=== PATIENT | female | born 1970 | race Caucasian/White ===

== ENCOUNTER 2016-05-19 20:04 | Emergency (ER) | payer BC ==
[2016-05-19] MEDS: 0.9 % SODIUM CHLORIDE 1,000 ML BAG IV ONE (20:28)
[2016-05-19] MEDS: ONDANSETRON HCL IV 4 MG/2 ML VIAL IVP ONE (20:28)
[2016-05-19] MEDS: HYOSCYAMINE SULFATE ODT 0.125 MG TAB.SUBL SL ONE (20:38)
--- NOTE | 2016-05-19 20:38 | Emergency Department Record ---
History of Present Illness - General Chief Complaint: Abdominal Pain Stated Complaint: STOMACH CRAMPY,SPASMS Time Seen by Provider: 05/19/16 20:32 Source: Patient Mode of Arrival: Ambulatory Limitations: No limitations - History of Present Illness Initial Comments: 46 yo female presents to ED with a CC of diffuse abdominal cramping, bloating, nausea, and vomiting symptoms that began earlier this afternoon. Patient denies fevers, chills, or recent ill contacts, but reports that her symptoms feel "like a stomach flu". Patient denies health problems at her baseline, reports x 2 previously. Patient denies change in stools. MD Complaint: Abdominal pain Onset/Timin -: Hour(s) Location: Diffuse Radiation: None Migration to: No migration Severity: Severe Quality: Cramping Consistency: Constant, Intermittent Improves With: Nothing Worsens With: Nothing Context: Other Associated Symptoms: Nausea - Related Data LMP (females 10-50): other Patient : No Previous Rx's Medication Instructions Recorded Hyoscyamine Sulfate [Levsin Odt] 0.25 mg PO Q8H PRN #15 tab.subl 05/19/16 Ondansetron [Zofran Odt] 4 mg PO Q4H PRN #15 tab.rapdis 05/19/16 Allergies Allergy/AdvReac Type Severity Reaction Status Date / Time No Known Drug Allergies Allergy Verified 05/19/16 20:15 Travel Screening - Travel/Exposure Within Last 30 Days Have you traveled within the last 30 days?: No - Travel/Exposure Within Last Year Have you traveled outside the [place] in the last year?: No - Additonal Travel Details Have you been exposed to anyone with a communicable illness?: No - Travel Symptoms Symptom Screening: None Review of Systems Constitutional: Denies: Chills, Fever, Malaise, Night sweats Eyes: Denies: Eye discharge, Eye pain ENT: Denies: Congestion, Ear pain, Epistaxis Respiratory: Denies: Cough, Dyspnea Cardiovascular: Denies: Chest pain, Dyspnea on exertion, Palpitations Endocrine: Denies: Fatigue, Heat or cold intolerance Gastrointestinal: Reports: Abdominal pain, Nausea, Vomiting. Denies: Constipation Genitourinary: Denies: Dysuria, Frequency, Hematuria, Incontinence Musculoskeletal: Denies: Arthralgia, Back pain, Gout, Joint swelling Skin: Denies: Bruising, Change in color Neurological: Denies: Abnormal gait, Confusion, Headache, Seizure Psychiatric: Denies: Anxiety Hematological/Lymphatic: Denies: Anemia, Blood Clots Past Medical History - SOCIAL HISTORY Smoking Status: Never smoker Alcohol Use: None Drug Use: None - RESPIRATORY Hx Respiratory Disorders: No - CARDIOVASCULAR Hx Cardio Disorders: No - NEURO Hx Neuro Disorders: No - GI Hx GI Disorders: No - Hx Genitourinary Disorders: No - ENDOCRINE Hx Endocrine Disorders: No - MUSCULOSKELETAL Hx Musculoskeletal Disorders: No - PSYCH Hx Psych Problems: No - HEMATOLOGY/ONCOLOGY Hx Hematology/Oncology Disorders: No Family Medical History Any Significant Family History?: No Physical Exam - General General Appearance: Alert, Oriented x3, Cooperative, Moderate distress Limitations: No limitations - Head Head exam: Atraumatic, Normocephalic, Normal inspection Head exam detail: negative: Abrasion, Contusion, Sanabria's sign, General tenderness, Hematoma, Laceration - Eye Eye exam: Normal appearance. negative: Conjunctival injection, Periorbital swelling, Periorbital tenderness, Scleral icterus - ENT Ear exam: negative: Auricular hematoma, Auricular trauma Nasal Exam: negative: Active bleeding, Discharge, Dried blood, Foreign body Mouth exam: negative: Drooling, Laceration, Muffled voice, Tongue elevation - Neck Neck exam: Normal inspection. negative: Meningismus, Tenderness - Respiratory Respiratory exam: Normal lung sounds bilaterally. negative: Respiratory distress, Rhonchi, Stridor, Wheezes - Cardiovascular Cardiovascular Exam: Normal rhythm, Normal heart sounds, Tachycardia - GI/Abdominal GI/Abdominal exam: Soft, Tenderness (mild, diffuse tenderness on examination). negative: Pulsatile mass, Rebound, Rigid - Rectal Rectal exam: Deferred - exam: Deferred - Extremities Extremities exam: Normal inspection. negative: Calf tenderness, Pedal edema, Tenderness - Back Back exam: Reports: Normal inspection. Denies: CVA tenderness (R), CVA tenderness (L), Paraspinal tenderness, Rash noted - Neurological Neurological exam: Alert, Normal gait, Oriented X3 - Psychiatric Psychiatric exam: Normal affect, Normal mood - Skin Skin exam: Normal color. negative: Abrasion Type of lesion: negative: abrasion Course Vital Signs 05/19/16 20:10 Temperature 100.0 F H Pulse Rate 115 H Respiratory 20 Rate Blood Pressure 101/70 Pulse Ox 96 - Reevaluation(s) Reevaluation #1: 05/19/16 21:16 Labs reviewed, WBC 11.9, 84% Neutrophils. CO2 18, AG 16. Labs are otherwise grossly unremarkable for an acute process. Reevaluation #2: 05/19/16 21:38 CT Abdomen and Pelvis: No acute process, (2) hypodense lesions liver (largest 13 mm), mass-like densities to the uterus c/w fibroids. recommend MRUI for further evaluation of liver lesions, US for evaluation of fibroids. Reevaluation #3: 05/19/16 22:28 Patient reassessed, reports that her symptoms are greatly improved. Pulse down to 102. Patient was updated on all results, and appears stable for discharge at this time. Patient and her were counseled regarding MRI as an outpatient to further characterize liver lesions. Patient also reports that she is s/p ablation for her fibroids. Medical Decision Making - Lab Data Result diagrams: 05/19/16 20:20 05/19/16 20:20 Disposition Disposition: Discharge Clinical Impression: Abdominal cramping Disposition: Home, Self-Care Condition: (2) Stable Instructions: Abdominal Pain (ED) Additional Instructions: Return to ED if your symptoms worsen or if you have any concerns. Levsin and Zofran as directed. Follow-up with your family doctor in 1-3 days as directed. Follow-up with your family doctor for outpatient MRI of the abdomen to further evaluate liver lesions (2) and uterine mass (likely fibroids). Prescriptions: Hyoscyamine Sulfate [Levsin Odt] 0.25 mg PO Q8H PRN #15 tab.subl PRN Reason: Abdominal Pain Ondansetron [Zofran Odt] 4 mg PO Q4H PRN #15 tab.rapdis PRN Reason: Nausea/Vomiting Forms: Patient Portal Access Time of Disposition: 22:34
[2016-05-19 20:44] LABS: BASO % 0.1 % (0-6); EOS % 0.2 % (0-6); HEMATOCRIT 42.1 % (35.0-47.0); HEMOGLOBIN 14.3 gm/dl (11.6-16.0); LYMPH % 7.6 % (16-45); MEAN CELL VOLUME 85.4 fl (81-97); MEAN PLATELET VOLUME 11.4 fl (7.4-10.4); PLATELET COUNT 325 K/uL (130-400); RED BLOOD COUNT 4.93 M/uL (3.80-5.40); WHITE BLOOD COUNT W/O DIFF 11.9 K/uL (4.2-12.2)
[2016-05-19 20:55] LABS: ALB/GLOB RATIO 1.5 (1.1-1.8); ALBUMIN 4.5 gm/dL (3.5-5.0); ALKALINE PHOSPHATASE 63 U/L (38-126); ALT/SGPT 25 U/L (9-52); ANION GAP 16.7 (7-16); AST/SGOT 22 U/L (14-36); BLOOD UREA NITROGEN 11 mg/dL (7-17); CARBON DIOXIDE 18.3 mmol/L (22-30); CREATININE 0.6 mg/dL (0.52-1.04); EST GLOMERULAR FILTRATION RATE > 60 ml/min; GLUCOSE,RANDOM 106 mg/dL (70-110); LIPASE 60 U/L (23-300); TOTAL PROTEIN 7.6 gm/dL (6.3-8.2)
[2016-05-19 21:57] LABS: URINE APPEARANCE CLEAR; URINE BILIRUBIN NEGATIVE (NEGATIVE); URINE BLOOD NEGATIVE (NEGATIVE); URINE COLOR YELLOW; URINE GLUCOSE (UA) NEGATIVE (NEGATIVE); URINE KETONE 40 mg/dL (NEGATIVE); URINE LEUKOCYTE ESTERASE NEGATIVE (NEGATIVE); URINE NITRITE NEGATIVE (NEGATIVE); URINE PROTEIN NEGATIVE (NEGATIVE); URINE UROBILINOGEN 0.2 E.U./dL (0.20 - 1.00)
[2016-05-19 21:59] LABS: HCG,QUALITATIVE URINE NEGATIVE (NEGATIVE)
[2016-05-19] MEDS: ONDANSETRON 4 MG ODT TABLET SL ONE (22:44)
--- NOTE | 2016-05-23 15:51 | CT SCAN REPORT ---
EXAM: CT OF THE ABDOMEN AND PELVIS WITH CONTRAST HISTORY: SPASM AND CRAMPING IN UPPER ABDOMEN WITH NAUSEA FOR FOUR TO FIVE HOURS. TECHNIQUE: Contrast enhanced helical CT examination of the abdomen and pelvis was performed including delayed images through the kidneys with 100 ml of Omnipaque 300 utilized. Comparison: None. FINDINGS: The lung bases are clear and there is no pleural or pericardial effusion. The heart is not enlarged. There is a subtle hypodense lesion within the posterior segment of the high right liver lobe measuring 5.7 mm in diameter. Additionally, there is a 9 x 13 mm hypodense lesion within the inferior aspect of the lateral segment of the left liver lobe. This has density ranging between 39 and 43 Hounsfield units. No other focal hepatic lesion is seen. The spleen, pancreas, adrenal glands and kidneys are normal in appearance. The gallbladder is unremarkable. No biliary ductal dilatation is seen. No definite peripancreatic fat stranding. No intraabdominal nor retroperitoneal lymphadenopathy. The uterine fundus is heterogeneous in appearance and there is a possible small mass arising exophytically from the right lateral aspect of the uterine fundus measuring approximately 11 mm in diameter. An additional contour deforming mass arises from the anterior uterine body/fundus measuring 1.7 x 1.7 cm. These are nonspecific, but likely fibroids. The cervix appears mildly prominent and heterogeneous. The etiology of this is uncertain. No other evidence of pelvic mass nor lymphadenopathy. No free pelvic fluid. No intrinsic urinary bladder abnormality though evaluation is limited by lack of distention. No gross bowel dilatation or bowel wall thickening is seen though evaluation is limited by lack of oral contrast utilization. The appendix is not visualized with confidence though no inflammatory changes are noted in its expected location. The abdominal aorta and iliac arteries are unremarkable. No lytic or blastic bone lesion seen. IMPRESSION: 1. NO DEFINITE CT EVIDENCE OF AN ACUTE INTRAABDOMINAL NOR INTRAPELVIC PROCESS. 2. THERE ARE TWO SMALL HYPODENSE MASSES WITHIN THE LIVER WHICH ARE OF INDETERMINATE ETIOLOGY. FURTHER EVALUATION WITH PRE AND POST CONTRAST ADMINISTRATION, MULTIPHASE MRI OR CT EXAMINATION MAY BE OF BENEFIT. 3. HETEROGENEOUS UTERINE FUNDUS WITH AT LEAST TWO MASSES PRESENT SUSPICIOUS FOR FIBROIDS. A THIRD MAY ARISE FROM THE POSTERIOR FUNDUS MEASURING 14 MM. ADDITIONALLY THE CERVIX APPEARS SOMEWHAT ENLARGED AND HETEROGENEOUS. FURTHER EVALUATION OF THESE FINDINGS WITH PELVIC SONOGRAPHY MAY BE OF BENEFIT. DIRECT VISUALIZATION OF THE CERVIX COULD ALSO BE PERFORMED. 4. NOT MENTIONED ABOVE IS A SMALL FAT FILLED UMBILICAL HERNIA. JOB NUMBER: [id number] [facility]
== END 2016-05-19 22:53 | disposition home or self-care (01) ==
LOC: ER 20:04
DX: R10.84 Generalized abdominal pain (principal); R11.2 Nausea with vomiting, unspecified; K76.9 Liver disease, unspecified
CPT/HCPCS: 99284 ×2; 96374; 96361; 83690; 80053; 81003; 81025; 85027; 74177; Q9967; J1980; J2405; J7030

== ENCOUNTER 2016-09-29 05:46 | Emergency (ER) | payer BC ==
[2016-09-29] MEDS ORDERED: ASPIRIN 81 MG CHEWABLE TABLET PO ONE (06:05)
--- NOTE | 2016-09-29 06:10 | Emergency Department Record ---
History of Present Illness - General Chief Complaint: Chest Pain Stated Complaint: CHEST PAIN Time Seen by Provider: 09/29/16 06:04 Source: Patient Mode of Arrival: Ambulatory Limitations: No limitations - History of Present Illness Initial Comments: 46 yo female presents to ED with a CC of chest discomfort that began earlier this morning when supine, resolved upon getting up and walking around. Patient denies nausea, vomiting, or difficulty in breathing symptoms. Patient denies pain with deep inspiration, and patient denies fever or cough symptoms. Patient denies previous heart or lung problems, denies smoking history, and denies history of DM or HTN. MD Complaint: Chest pain Onset/Timin -: Hour(s) Onset: During rest Pain Location: Substernal, Epigastric Consistency: Now resolved Improves With: Nothing Worsens With: Nothing Treatments Prior to Arrival: None - Related Data On Oral Contraceptives: No Home Medications Medication Instructions Recorded Confirmed Last Taken No Home Med [NO HOME MEDS] 09/29/16 09/29/16 Unknown Allergies Allergy/AdvReac Type Severity Reaction Status Date / Time No Known Drug Allergies Allergy Verified 05/19/16 20:15 Travel Screening - Travel/Exposure Within Last 30 Days Have you traveled within the last 30 days?: No Review of Systems Constitutional: Denies: Chills, Fever, Malaise, Night sweats Eyes: Denies: Eye discharge, Eye pain ENT: Denies: Congestion, Ear pain, Epistaxis Respiratory: Denies: Cough, Dyspnea Cardiovascular: Reports: Chest pain. Denies: Dyspnea on exertion, Palpitations Endocrine: Denies: Fatigue, Heat or cold intolerance Gastrointestinal: Denies: Abdominal pain, Nausea, Vomiting Genitourinary: Denies: Frequency, Hematuria, Incontinence, Retention Musculoskeletal: Denies: Arthralgia, Back pain Skin: Denies: Bruising, Change in color Neurological: Denies: Abnormal gait, Confusion, Headache Psychiatric: Denies: Anxiety Hematological/Lymphatic: Denies: Anemia, Blood Clots Past Medical History - SOCIAL HISTORY Smoking Status: Never smoker Alcohol Use: None Drug Use: None - RESPIRATORY Hx Respiratory Disorders: No - CARDIOVASCULAR Hx Cardio Disorders: No - NEURO Hx Neuro Disorders: No - GI Hx GI Disorders: No - Hx Genitourinary Disorders: No - ENDOCRINE Hx Endocrine Disorders: No - MUSCULOSKELETAL Hx Musculoskeletal Disorders: No - PSYCH Hx Psych Problems: No - HEMATOLOGY/ONCOLOGY Hx Hematology/Oncology Disorders: No Family Medical History Any Significant Family History?: No Physical Exam - General General Appearance: Alert, Oriented x3, Cooperative, No acute distress, Other ( resting comfortably, pain-free currently) Limitations: No limitations - Head Head exam: Atraumatic, Normocephalic, Normal inspection Head exam detail: negative: Abrasion, Contusion, Sanabria's sign, General tenderness, Hematoma, Laceration - Eye Eye exam: Normal appearance. negative: Conjunctival injection, Periorbital swelling, Periorbital tenderness, Scleral icterus - ENT Ear exam: negative: Auricular hematoma, Auricular trauma Nasal Exam: negative: Active bleeding, Discharge, Dried blood, Foreign body Mouth exam: negative: Drooling, Laceration, Muffled voice, Tongue elevation - Neck Neck exam: Normal inspection. negative: Meningismus, Tenderness - Respiratory Respiratory exam: Normal lung sounds bilaterally. negative: Respiratory distress, Rhonchi, Stridor, Wheezes - Cardiovascular Cardiovascular Exam: Regular rate, Normal rhythm, Normal heart sounds - GI/Abdominal GI/Abdominal exam: Soft. negative: Organomegaly, Rebound, Rigid, Tenderness - Rectal Rectal exam: Deferred - exam: Deferred - Extremities Extremities exam: Normal inspection. negative: Calf tenderness, Pedal edema, Tenderness - Back Back exam: Denies: CVA tenderness (R), CVA tenderness (L) - Neurological Neurological exam: Alert, Normal gait, Oriented X3 - Psychiatric Psychiatric exam: Normal affect, Normal mood - Skin Skin exam: Normal color. negative: Abrasion Type of lesion: negative: abrasion Course Vital Signs 09/29/16 05:54 Pulse Rate [ 83 Pulse Ox Probe] Respiratory 15 Rate Blood Pressure 110/73 [Left Arm] Pulse Ox 97 - Reevaluation(s) Reevaluation #1: 09/29/16 06:11 EKG: NSR 77 Normal axis, normal intervals No acute ST-T wave changes Patient seen and examined, EKG appears normal without any acute ischemic changes , will perform (2) sets of cardiac enzymes to exclude myocardial damage. Patient and SO agree with plan as discussed. Patient is pain-free at this time. Patient is PERC negative on examination. 09/29/16 06:13 Reevaluation #2: 09/29/16 06:40 CXR: No acute process. Reevaluation #3: 09/29/16 07:02 Labs reviewed, first Troponin is negative for myocardial damage, all other labs are unremarkable for an acute process. Patient and SO were updated on all results and plan for 2nd Troponin. Case was discussed with oncoming provider, will assume care pending second Troponin. Medical Decision Making - Lab Data Result diagrams: 09/29/16 06:30 09/29/16 06:30 Disposition Disposition: Discharge Clinical Impression: Chest pain Qualifiers: Chest pain type: unspecified Qualified Code(s): R07.9 - Chest pain, unspecified Disposition: Home, Self-Care Condition: (2) Stable Instructions: Chest Pain (ED) Additional Instructions: Return to ED if your symptoms worsen or if you have any concerns. Follow-up in the [facility] Specialty clinic next week for cardiac stress testing. Referrals: NAVEEN ROME M.D. [MEDICAL DOCTOR] - [facility] Specialty Clinics [Provider Group] Forms: Patient Portal Access Time of Disposition: 06:15
[2016-09-29 06:38] LABS: BASO % 0.4 % (0-6); EOS % 0.4 % (0-6); GRAN % 61.3 % (47-80); HEMATOCRIT 41.9 % (35.0-47.0); HEMOGLOBIN 13.7 gm/dl (11.6-16.0); LYMPH % 33.2 % (16-45); MEAN CORPUSCULAR HEMOGLOBIN 28.1 pg (27-33); MEAN CORPUSCULAR HGB CONC 32.7 g/dl (32-36); MEAN PLATELET VOLUME 10.8 fl (7.4-10.4); MONO % 4.7 % (0-9); PLATELET COUNT 333 K/uL (130-400); RED BLOOD COUNT 4.87 M/uL (3.80-5.40); RED CELL DISTRIBUTION WIDTH 14.1 % (11.5-14.5); WHITE BLOOD COUNT W/O DIFF 7.3 K/uL (4.2-12.2)
[2016-09-29 06:49] LABS: ALB/GLOB RATIO 1.2 (1.1-1.8); ALKALINE PHOSPHATASE 52 U/L (38-126); ALT/SGPT 21 U/L (9-52); ANION GAP 5.3 (7-16); AST/SGOT 21 U/L (14-36); BILIRUBIN,TOTAL 0.54 mg/dL (0.2-1.3); BLOOD UREA NITROGEN 13 mg/dL (7-17); CARBON DIOXIDE 23.7 mmol/L (22-30); CREATINE PHOSPHOKINASE 63 U/L (30-135); CREATININE 0.6 mg/dL (0.52-1.04); EST GLOMERULAR FILTRATION RATE > 60 ml/min; GLUCOSE,RANDOM 94 mg/dL (70-110); TOTAL PROTEIN 7.4 gm/dL (6.3-8.2)
[2016-09-29 07:01] LABS: CKMB 0.4 ug/L (0-6); TROPONIN I < 0.012 ng/mL (0.00-0.034)
--- NOTE | 2016-09-29 07:27 | Emergency Department Record ---
History of Present Illness - General Chief Complaint: Chest Pain Stated Complaint: CHEST PAIN Time Seen by Provider: 09/29/16 06:04 Source: Patient Mode of Arrival: Ambulatory Limitations: No limitations - History of Present Illness Initial Comments: Assumed care at shift change. Patient is scheduled to have 4 hour repeat cardiac enzymes at 10 a.m. She is here for atypical chest pain. She presently is chest pain free. Lights in room turned out and patient wishing to sleep. Onset/Timin -: Hour(s) Onset: During rest Pain Location: Substernal, Epigastric Consistency: Now resolved Improves With: Nothing Worsens With: Nothing Treatments Prior to Arrival: None - Related Data On Oral Contraceptives: No Home Medications Medication Instructions Recorded Confirmed Last Taken No Home Med [NO HOME MEDS] 09/29/16 09/29/16 Unknown Allergies Allergy/AdvReac Type Severity Reaction Status Date / Time No Known Drug Allergies Allergy Verified 05/19/16 20:15 Travel Screening - Travel/Exposure Within Last 30 Days Have you traveled within the last 30 days?: No Review of Systems Constitutional: Denies: Chills, Fever, Malaise, Night sweats Eyes: Denies: Eye discharge, Eye pain ENT: Denies: Congestion, Ear pain, Epistaxis Respiratory: Denies: Cough, Dyspnea Cardiovascular: Reports: Chest pain. Denies: Dyspnea on exertion, Palpitations Endocrine: Denies: Fatigue, Heat or cold intolerance Gastrointestinal: Denies: Abdominal pain, Nausea, Vomiting Genitourinary: Denies: Frequency, Hematuria, Incontinence, Retention Musculoskeletal: Denies: Arthralgia, Back pain Skin: Denies: Bruising, Change in color Neurological: Denies: Abnormal gait, Confusion, Headache Psychiatric: Denies: Anxiety Hematological/Lymphatic: Denies: Anemia, Blood Clots Past Medical History - SOCIAL HISTORY Smoking Status: Never smoker Alcohol Use: None Drug Use: None - RESPIRATORY Hx Respiratory Disorders: No - CARDIOVASCULAR Hx Cardio Disorders: No - NEURO Hx Neuro Disorders: No - GI Hx GI Disorders: No - Hx Genitourinary Disorders: No - ENDOCRINE Hx Endocrine Disorders: No - MUSCULOSKELETAL Hx Musculoskeletal Disorders: No - PSYCH Hx Psych Problems: No - HEMATOLOGY/ONCOLOGY Hx Hematology/Oncology Disorders: No Family Medical History Any Significant Family History?: No Physical Exam - General Limitations: No limitations Course Vital Signs 09/29/16 09/29/16 05:54 06:42 Temperature 98.5 F Pulse Rate [ 83 Pulse Ox Probe] Respiratory 15 Rate Blood Pressure 110/73 [Left Arm] Pulse Ox 97 - Reevaluation(s) Reevaluation #1: Four hour repeat enzymes are NOT rising. Will discharge home with Cardiology follow up next week as discussed previously. 09/29/16 11:13 Reevaluation #2: Results discussed with patient. All questions answered. Will follow up as instructed. 09/29/16 11:15 Medical Decision Making - Lab Data Result diagrams: 09/29/16 06:30 09/29/16 06:30 Lab Results 09/29/16 09/29/16 Range/Units 06:30 06:30 WBC 7.3 (4.2-12.2) K/uL RBC 4.87 (3.80-5.40) M/uL Hgb 13.7 (11.6-16.0) gm/dl Hct 41.9 (35.0-47.0) % MCV 86.0 (81-97) fl MCH 28.1 (27-33) pg MCHC 32.7 (32-36) g/dl RDW 14.1 (11.5-14.5) % Plt Count 333 (130-400) K/uL MPV 10.8 H (7.4-10.4) fl Gran % 61.3 (47-80) % Lymphocytes % 33.2 (16-45) % Monocytes % 4.7 (0-9) % Eosinophils % 0.4 (0-6) % Basophils % 0.4 (0-6) % Sodium 140 (136-145) mmol/L Potassium 3.8 (3.5-5.1) mmol/L Chloride 111 H (98-107) mmol/L Carbon Dioxide 23.7 (22-30) mmol/L Anion Gap 5.3 L (7-16) BUN 13 (7-17) mg/dL Creatinine 0.6 (0.52-1.04) mg/dL Estimated GFR > 60 ml/min Random Glucose 94 (70-110) mg/dL Calcium 8.4 L (8.5-10.1) mg/dL Total Bilirubin 0.54 (0.2-1.3) mg/dL AST 21 (14-36) U/L ALT 21 (9-52) U/L Alkaline Phosphatase 52 (38-126) U/L Creatine Kinase 63 (30-135) U/L CK-MB (CK-2) 0.4 (0-6) ug/L Troponin I < 0.012 (0.00-0.034) ng/mL Total Protein 7.4 (6.3-8.2) gm/dL Albumin 4.0 (3.5-5.0) gm/dL Globulin 3.4 (1.4-4.8) gm/dL Albumin/Globulin Ratio 1.2 (1.1-1.8) Disposition Disposition: Discharge Clinical Impression: Chest pain Qualifiers: Chest pain type: unspecified Qualified Code(s): R07.9 - Chest pain, unspecified Disposition: Home, Self-Care Condition: (2) Stable Instructions: Chest Pain (ED) Additional Instructions: Return to ED if your symptoms worsen or if you have any concerns. Follow-up in the [facility] Specialty clinic next week for cardiac stress testing. Referrals: [facility] Specialty Clinics [Provider Group] NAVEEN ROME M.D. [MEDICAL DOCTOR] - Forms: Patient Portal Access
[2016-09-29 10:47] LABS: CREATINE PHOSPHOKINASE 62 U/L (30-135)
[2016-09-29 11:00] LABS: CKMB 0.4 ug/L (0-6)
[2016-09-29 11:01] LABS: TROPONIN I < 0.012 ng/mL (0.00-0.034)
--- NOTE | 2016-10-01 16:11 | RADIOLOGY REPORT ---
EXAM: CHEST 2 VIEWS HISTORY: ACUTE LEFT CHEST PAIN. FORMER SMOKER. TECHNIQUE: Two-view chest. COMPARISON: None. FINDINGS: Lungs are clear. Cardiac silhouette, diaphragm, and osseous structures are unremarkable for age. IMPRESSION: NO ACUTE INTRATHORACIC PROCESS. JOB NUMBER: [id number] MTDD
== END 2016-09-29 11:28 | disposition home or self-care (01) ==
LOC: ER 05:46
DX: R07.9 Chest pain, unspecified (principal)
CPT/HCPCS: 71020; 80053; 82550; 82553; 84484; 85025; 93005; 93010; 99283